=== PATIENT | female | born 1965 | race Caucasian/White ===

== ENCOUNTER 2017-06-08 05:41 | Emergency (ER) | payer MEDICAID, OTHER ==
[~2017-06-08] VITALS: Ht 185.4 cm; Wt 105.6 kg
[2017-06-08 05:52] VITALS: BP 136/74; PULSE 77; RESP 14; TEMP 97.8; O2SAT 98
[2017-06-08] MEDS ORDERED: HYDR-3533 PO (06:36)
[2017-06-08] MEDS ORDERED: ERYTOIN10 RIGHT EYE (06:36)
--- NOTE | 2017-06-08 06:36 | PD ---
HPI Chief Complaint: Eye Problems/Injury Time Seen by Provider: 06:33 Travel History International Travel<30 days: No Contact w/Intl Traveler<30days: No Traveled to known affect area: No History of Present Illness HPI 51-year-old female presents to the emergency department for complaint of right eye pain since morning. Patient states while brushing her hair she accidentally scraped her eye with the bursal of her brothers. Patient states she had immediate discomfort and irritation. Throat the day she has noted tearing and discomfort and use [id number] eyedrops with some symptomatic relief. Patient reports upon awakening this morning noted increasing irritation to decided to finally come to the emergency room for evaluation. Patient is traveling back home to [place] today if she has been here on vacation. Patient's had no purulent drainage. Patient's noted some irritation of the eye and has caused some mild intermittent blurring of her vision but denies any loss of vision. Patient does wear reading glasses occasionally. Patient denies a concerns or complaints. Patient does not know her tetanus status. Patient does take metformin for type 2 diabetes. PFSH Past Medical History Narrative Medical Diabetes tubal ligation prior intracranial bleed; appendectomy; nursing notes reviewed Social History Tobacco Use: No Allergies-Medications (Allergen,Severity, Reaction): Coded Allergies: No Known Allergies (Unverified , 06/08/17) Reported Meds & Prescriptions Reported Meds & Active Scripts Active Lortab (Hydrocodone-Acetaminophen) 5-325 Mg Tab 1 Tab PO Q6H PRN Erythromycin Opth Oint 5 Mg/Gm Oint 1 Applic RIGHT EYE QID Review of Systems Except as stated in HPI: all other systems reviewed are Neg Physical Exam Narrative GENERAL: Well-developed well-nourished female in no acute distress no respiratory distress; GCS 15 SKIN: Warm and dry. HEAD: Normocephalic. EYES: No scleral icterus. Mild right eye injection with intermittent clear nonpurulent drainage. Extraocular muscles intact pupils equal round reactive to light funduscopic exam no papilledema anterior chain no gross hyphema fluorescein stain positive uptake consistent with corneal abrasion and no Sherly sign. . Data Data Last Documented VS Vital Signs Date Time Temp Pulse Resp B/P (MAP) Pulse Ox O2 Delivery O2 Flow Rate FiO2 06/08/17 07:15 06/08/17 05:52 97.8 77 14 98 Orders Orders Tetanus/Diphtheria Tox Adult (Tetanus/Di (06/08/17 06:45) MDM Medical Decision Making Medical Screen Exam Complete: Yes Emergency Medical Condition: Yes Medical Record Reviewed: Yes Differential Diagnosis Corneal abrasion conjunctivitis iritis Narrative Course Patient with corneal abrasion with fluorescein uptake at site of/superficial puncture wound from brush bristles; patient's tetanus status updated patient given prescription for pain medication and Ilotycin ointment and encouraged to follow-up with pathology secretary times one day and return to the emergency department for comfort any concerns or change in condition Diagnosis Primary Impression: Corneal abrasion, right Referrals: [employer] 1 day Patient Instructions: General Instructions Additional Instructions: Follow-up with eye doctor Apply cool compresses intermittently Apply antibiotic ointment as prescribed Return to the emergency for any concerns or change in condition May take pain medication as prescribed as needed Med/Other Pt SpecificInfo: Prescription(s) given Scripts Hydrocodone-Acetaminophen (Lortab) 5-325 Mg Tab 1 TAB PO Q6H Y for PAIN, #7 TAB 0 Refills Prov: Janette Jolly MD 06/08/17 Erythromycin Opth Oint (Erythromycin Opth Oint) 5 Mg/Gm Oint 1 APPLIC RIGHT EYE QID for Infection, #1 TUBE 0 Refills Prov: Janette Jolly MD 06/08/17 Disposition: 01 DISCHARGE HOME Condition: Stable Janette Jolly MD Jun 08, 2017 06:36
[2017-06-08] MEDS ORDERED: TETANUS/DIPHTHERIA TOXOID ADULT 0.5 ML VIAL IM ONE (06:45)
== END 2017-06-08 07:19 | disposition home or self-care (01) ==
LOC: PHED 05:41
DX: S05.01XA Injury of conjunctiva and corneal abrasion without foreign body, right eye, initial encounter (principal); W22.8XXA Striking against or struck by other objects, initial encounter; Y93.E8 Activity, other personal hygiene; E11.9 Type 2 diabetes mellitus without complications; Z79.84 Long term (current) use of oral hypoglycemic drugs; Z23 Encounter for immunization
CPT/HCPCS: 90471; 90714